=== PATIENT | female | born 1955 | race American Indian/Alaskan Native ===

== ENCOUNTER 2017-02-06 09:44 | Emergency (ER) | payer OTHER ==
[2017-02-06 09:58] VITALS: TEMP 97.5; O2SAT 100
--- NOTE | 2017-02-06 10:28 | ED PDOC ---
Arrival/HPI - General Time Seen by Provider: 02/06/17 09:47 - History of Present Illness Narrative History of Present Illness (Text): 02/06/17 10:30 61yo female with L. ring finger injury, states she closes it in a trunk yesterday. Denies pain. No other complaints. Past Medical History - Provider Review Nursing Documentation Reviewed: Yes - Infectious Disease Hx of Infectious Diseases: None - Cardiac Hx Hypertension: Yes - Psychiatric Hx Substance Use: No Family/Social History Family/Social History: Unknown Family HX Smoking Status: Never Smoked Hx Alcohol Use: No Hx Substance Use: No Allergies/Home Meds Allergies/Adverse Reactions: Allergies No Known Allergies Allergy (Verified 02/06/17 09:59) Home Medications: Home Meds Medication Instructions Recorded Confirmed Unobtainable 02/06/17 02/06/17 Review of Systems - Physician Review All systems were reviewed & negative as marked: Yes - Review of Systems Musculoskeletal: Other (finger injury) Physical Exam Vital Signs Reviewed: Yes Vital Signs Temp Pulse Resp BP Pulse Ox 02/06/17 09:55 97.5 F L 86 18 145/104 H 100 Temperature: Afebrile Blood Pressure: Hypertensive (asymptomatic, no focal neurological deficits) Respiratory Rate: Normal Appearance: Positive for: Well-Appearing Pain Distress: None Mental Status: Positive for: Alert and Oriented X 3 - Systems Exam Upper Extremity: Present: Other (L. index finger with full active/passive ROM, minor swelling, some tenderness to palpation over the DIP. No discolotation. Distal neurovasc. intact. Nail unremarkable. ) Medical Decision Making ED Course and Treatment: 02/06/17 10:33 pt after a crush finger injury yesterday no acute fx's or dislocations on xray. interpreted by me. finger splint applied pt informed it is important to f/u with ortho for further w/u due to risk of occult fx or tendon injury pt verbalized understanding Pt states she understands to return to the ER right away for new or worsening symptoms or for inability to f/u with PMD or specialist as instructed. Patient states that she fully agrees with and understands discharge instructions. States that she agrees with the plan and disposition. Verbalized and repeated discharge instructions and plan. I have given the patient opportunity to ask any additional questions. - RAD Interpretation Radiology Orders: 02/06/17 09:59 HAND LEFT 4TH DIGIT (FINGER) [RAD] Stat Disposition/Present on Arrival - Present on Arrival Any Indicators Present on Arrival: No History of DVT/PE: No History of Uncontrolled Diabetes: No Urinary Catheter: No History of Decub. Ulcer: No History Surgical Site Infection Following: None - Disposition Have Diagnosis and Disposition been Completed?: Yes Diagnosis: Finger injury Disposition: HOME/ ROUTINE Disposition Time: 10:35 Patient Plan: Discharge Condition: GOOD Discharge Instructions (ExitCare): Crush Injury (ED), Finger Sprain (ED) Additional Instructions: PLEASE RETURN TO THE EMERGENCY DEPARTMENT FOR NEW OR WORSENING SYMPTOMS. RETURN RIGHT AWAY IF YOU CANNOT FOLLOW UP WITH YOUR PRIMARY CARE DOCTOR, CLINIC, OR SPECIALIST IN 1-2 DAYS. Referrals: Burt Ferrell MD [Primary Care Provider] - Follow up with primary Yany Escobar MD [Staff Provider] - Follow up with primary Sean Escobar DO [Staff Provider] - Follow up with primary
[2017-02-06 11:01] VITALS: BP 146/90; PULSE 90; RESP 17
--- NOTE | 2017-02-06 11:34 | RAD ---
PROCEDURE: Left ring finger radiographs. HISTORY: injury COMPARISON: None. TECHNIQUE: AP radiograph of the left hand, as well as spot oblique and lateral images of left ring finger were obtained. FINDINGS: LEFT RING FINGER: A dorsal chip or avulsion fracture seen related to the posterior margin of the distal interphalangeal joint of the left long finger. Alternatively, this could reflect and slightly irregular focus of heterotopic calcification, which is not favored. Local soft tissues appear unremarkable otherwise as well as the remainder of the left long finger bony components. Remainder of the left hand (as seen on the AP view) is grossly unremarkable. JOINTS: Normal. SOFT TISSUES: Normal. OTHER FINDINGS: None. IMPRESSION: A small chip or avulsion fracture fracture at the dorsal side of the distal interphalangeal of the left ring finger. No dislocation.
== END 2017-02-06 11:05 | disposition home or self-care (01) ==
LOC: ED 09:44
DX: S69.92XA Unspecified injury of left wrist, hand and finger(s), initial encounter (principal); W22.8XXA Striking against or struck by other objects, initial encounter; I10 Essential (primary) hypertension

== ENCOUNTER 2018-09-29 10:19 | Outpatient (CLI) | payer OTHER | END 2018-09-29 10:20 | disposition home or self-care (01) | LOC: LAB 10:19 ==